=== PATIENT | male | born 1940 | race Caucasian/White ===

== ENCOUNTER 2022-06-30 23:41 | Inpatient (IN) | payer MEDICARE, OTHER ==
[2022-07-01] MEDS ORDERED: Naloxone HCl 0.4 mg/ml Vial ONE (00:59)
[2022-07-01 01:03] LABS: #Monocytes 0.9 10x3/uL (0.0-1.1); #Neutrophils 16.3 10x3/uL (1.5-8.4); %Basophils 0.1 % (0.0-2.0); %Lymphocytes 2.3 % (18.0-47.0); %Monocytes 4.9 % (0.0-10.0); %Neutrophils 92.4 % (40.0-75.0); Mean Corpuscular HGB CONC 35.5 g/dL (32.0-36.0); Mean Corpuscular Hemoglobin 29.6 pg (27.0-33.0); Mean Corpuscular Volume 83.3 fl (81.2-95.1); Mean Platelet Volume 9.2 fl (7.4-10.4); Platelet Count 193 10x3/uL (150-450); RBC Distribution Width 14.6 % (11.5-14.5); Red Blood Cell (RBC) Count 4.06 10x6/uL (4.32-5.72); White Blood Cell (WBC) Count 17.6 10x3/uL (3.5-10.5)
[2022-07-01 01:16] LABS: ALT (SGPT) 29 U/L (8-55); AST (SGOT) 31 U/L (5-34); Albumin 3.6 g/dL (3.4-4.8); Alkaline Phosphatase 103 U/L (40-110); Anion Gap 14 mmol/L (10-20); BUN (Urea Nitrogen) 16 mg/dL (8.4-25.7); Bilirubin, Total 1.2 mg/dL (0.2-1.2); Calc. Creatinine Clearance 0 mL/min (70-130); Carbon Dioxide 23 mmol/L (23-31); Chloride 100 mmol/L (98-107); Estimated GFR 75; Globulin 2.7 g/dL (2.4-3.5); Glucose 154 mg/dL (83-110); Potassium 3.3 mmol/L (3.5-5.1); Protein, Total 6.3 g/dL (5.8-8.1); Sodium 134 mmol/L (136-145)
[2022-07-01 01:43] LABS: SARS-CoV-2 NAA Rapid Test Not Detected (NotDetected)
[2022-07-01 01:48] LABS: CKMB 0.8 ng/mL (0-6.6)
[2022-07-01] MEDS ORDERED: Heparin 25,000 units/D5W 500 ML ONE (02:27)
[2022-07-01] MEDS ORDERED: Aspirin 325 MG TAB ONE (02:27)
[2022-07-01 02:30] LABS: Bilirubin Neg (Negative); Blood, Urine Negative (Negative); Clarity Clear (Clear); Glucose, Urine (Dipstick) Normal (Negative); Ketone, Urine Negative (Negative); Leukocyte Negative (Negative); Nitrite Negative (Negative); Protein, Urine (Dipstick) 15 mg/dl (Neg-Trace); Specific Gravity, Urine 1.005 (1.005-1.030); Urobilinogen Normal mg/dL (Less than 2)
[2022-07-01] MEDS ORDERED: Heparin 5,000 UNITS/ML VIAL ONE (02:39)
[2022-07-01 03:55] LABS: INR-International Normal Ratio 1.1; PTT 31.6 sec (22.0-33.0); Prothrombin Time 12.3 sec (9.5-12.1)
[2022-07-01] MEDS ORDERED: Communication Order-Pharmacy FS PRN (03:57)
[2022-07-01] MEDS ORDERED: Nitroglycerin 0.4 MG TAB (25 Tab Bottle) SL PRN (04:00)
[2022-07-01] MEDS ORDERED: Ondansetron PF 4 MG/2 ML Vial IVP PRN (04:07)
[2022-07-01 04:40] LABS: Magnesium 1.3 mg/dL (1.6-2.6)
[2022-07-01 04:46] LABS: Troponin I 0.872 ng/mL (< 0.028)
[2022-07-01] MEDS ORDERED: Heparin 10,000 UNITS/ 10 ML VIAL SLOW IVP SCH (05:00)
[2022-07-01] MEDS ORDERED: VANCOMYCIN 1.75 GM/350 ML BAG 1.75 GM in Premix Bag 1 BAG IVPB SCH (05:00)
[2022-07-01] MEDS ORDERED: Heparin 25,000 units/D5W 500 ML IVPB SCH (05:00)
[2022-07-01 05:30] LABS: Hemoglobin 10.2 g/dL (13.5-17.5); Platelet Count 179 10x3/uL (150-450)
[2022-07-01] MEDS ORDERED: Magnesium 2 GM/50 ML(in water) 2 GM in Premix Bag 1 BAG IVPB SCH (05:30)
[2022-07-01] MEDS: Sodium Chloride 0.9% 1,000 ML IV SCH ×2 (05:37→17:54)
[2022-07-01] MEDS ORDERED: Magnesium 2 GM/50 ML BAG (IN WATER) ONE (05:41)
[2022-07-01] MEDS ORDERED: Cefepime 2 GM in Sodium Chloride 0.9% 100 ML IVPB SCH (06:00)
[2022-07-01] MEDS: Potassium Chloride 20 MEQ in Premix Bag 1 BAG IVPB SCH ×2 (06:01→08:00)
[2022-07-01] MEDS ORDERED: Potassium Chloride 20 MEQ/100 ML PREMIX BAG ONE ×2 (06:22→08:16)
[2022-07-01 07:15] LABS: Hemoglobin 10.9 g/dL (13.5-17.5); MDiff Complete? YES; Mean Corpuscular HGB CONC 34.9 g/dL (32.0-36.0); Mean Corpuscular Hemoglobin 29.9 pg (27.0-33.0); Mean Corpuscular Volume 85.7 fl (81.2-95.1); Mean Platelet Volume 9.2 fl (7.4-10.4); Platelet Count 174 10x3/uL (150-450); RBC Distribution Width 14.9 % (11.5-14.5); Red Blood Cell (RBC) Count 3.64 10x6/uL (4.32-5.72); White Blood Cell (WBC) Count 20.1 10x3/uL (3.5-10.5)
[2022-07-01 07:28] LABS: Anion Gap 12 mmol/L (10-20); BUN (Urea Nitrogen) 17 mg/dL (8.4-25.7); Calc. Creatinine Clearance 0 mL/min (70-130); Calcium 7.6 mg/dL (7.8-10.44); Carbon Dioxide 24 mmol/L (23-31); Chloride 100 mmol/L (98-107); Estimated GFR 85; Glucose 149 mg/dL (83-110); Potassium 3.2 mmol/L (3.5-5.1); Sodium 133 mmol/L (136-145)
[2022-07-01 07:33] LABS: Troponin I 0.772 ng/mL (< 0.028)
[2022-07-01 08:00] LABS: Band 12 % (5-11); Lymphocytes 4 % (21-51); Monocytes 3 % (0-10); Neutrophil 81 % (42-75)
[2022-07-01] MEDS: Cefepime 2 GM in Sodium Chloride 0.9% 100 ML IVPB SCH ×2 (08:00→16:40)
[2022-07-01 08:03] LABS: Platelet Morphology Comment Appears Adequate
[2022-07-01 08:04] LABS: RBC Morphology Normal
[2022-07-01] MEDS ORDERED: Cefepime 2 GM VIAL ONE ×2 (08:14→15:45)
[2022-07-01] MEDS ORDERED: Pantoprazole 40 MG VIAL ONE (08:15)
[2022-07-01] MEDS ORDERED: Aspirin Chewable 81 MG TAB ONE (08:15)
[2022-07-01] MEDS: Aspirin Chewable 81 MG TAB PO SCH (08:48)
[2022-07-01] MEDS: Pantoprazole 40 MG VIAL IVP SCH (08:48)
[2022-07-01] MEDS ORDERED: Iopamidol 370 76% 100 ML VIAL ONE (10:03)
[2022-07-01] MEDS ORDERED: Acetaminophen 325 MG TAB ONE (11:00)
[2022-07-01] MEDS: Acetaminophen 325 MG TAB PO PRN (11:02)
[2022-07-01 22:17] VITALS: BMI 27.8
[2022-07-01 23:39] LABS: Bilirubin Neg (Negative); Blood, Urine 25 (Negative); CAUTI Indications for Culture Alt mental st,lethar; Clarity Slightly Cloudy (Clear); Glucose, Urine (Dipstick) Normal (Negative); Ketone, Urine 5 mg/dL (Negative); Leukocyte 25 (Negative); Nitrite Negative (Negative); Protein, Urine (Dipstick) 30 mg/dl (Neg-Trace); Specific Gravity, Urine 1.015 (1.005-1.030); Urobilinogen Normal mg/dL (Less than 2)
[2022-07-01 23:43] LABS: Urine Culture Reflex No No
[2022-07-01 23:55] LABS: Bacteria/HPF None Seen HPF (None Seen); RBC/HPF 0-3 HPF (0-3); Squamous Epithelial 0-3 HPF (0-3); WBC/HPF 0-3 HPF (0-3)
[2022-07-02] MEDS: Acetaminophen 325 MG TAB PO PRN (00:11)
[2022-07-02] MEDS: Cefepime 2 GM in Sodium Chloride 0.9% 100 ML IVPB SCH ×2 (00:13→09:44)
[2022-07-02] MEDS: Sodium Chloride 0.9% 1,000 ML IV SCH ×2 (01:32→09:34)
[2022-07-02] MEDS ORDERED: HYDROcodone/Acetaminophen 5/325 mg Tablet PO PRN ×2 (01:37→10:26)
[2022-07-02] MEDS: Vancomycin 1.5 GRAM/300 ML BAG 1.5 GM in Premix Bag 1 BAG IVPB SCH (05:29)
[2022-07-02 07:00] LABS: #Monocytes 1.3 10x3/uL (0.0-1.1); #Neutrophils 13.1 10x3/uL (1.5-8.4); %Basophils 0.2 % (0.0-2.0); %Eosinophils 0.1 % (0.0-6.0); %Lymphocytes 5.8 % (18.0-47.0); %Monocytes 8.7 % (0.0-10.0); %Neutrophils 84.7 % (40.0-75.0); Hemoglobin 10.4 g/dL (13.5-17.5); Mean Corpuscular HGB CONC 33.8 g/dL (32.0-36.0); Mean Corpuscular Hemoglobin 28.7 pg (27.0-33.0); Mean Corpuscular Volume 84.8 fl (81.2-95.1); Mean Platelet Volume 9.6 fl (7.4-10.4); Platelet Count 170 10x3/uL (150-450); RBC Distribution Width 15.2 % (11.5-14.5); Red Blood Cell (RBC) Count 3.63 10x6/uL (4.32-5.72); White Blood Cell (WBC) Count 15.4 10x3/uL (3.5-10.5)
[2022-07-02 07:23] LABS: Anion Gap 13 mmol/L (10-20); BUN (Urea Nitrogen) 20 mg/dL (8.4-25.7); Calc. Creatinine Clearance 89 mL/min (70-130); Calcium 7.4 mg/dL (7.8-10.44); Carbon Dioxide 21 mmol/L (23-31); Cardiac Risk 3.2 (Less than 4.5); Chloride 102 mmol/L (98-107); Cholesterol 97 mg/dl (< 200 Desired); Estimated GFR 88; Glucose 103 mg/dL (83-110); HDL Cholesterol 30 mg/dL (>60 Neg Risk); LDL Cholesterol, Calculated 42 mg/dL; Magnesium 1.9 mg/dL (1.6-2.6); Potassium 3.3 mmol/L (3.5-5.1); Sodium 133 mmol/L (136-145); Triglycerides 125 mg/dL (Less than 150)
[2022-07-02] MEDS: Aspirin Chewable 81 MG TAB PO SCH (09:36)
[2022-07-02] MEDS: Pantoprazole 40 MG VIAL IVP SCH (09:37)
[2022-07-02] MEDS ORDERED: Magnevist 469MG/ML 20 ML VIAL ONE ×2 (10:13)
[2022-07-02] MEDS ORDERED: Morphine 4 MG/ML VIAL SLOW IVP PRN (10:45)
[2022-07-02] MEDS ORDERED: ALPRAZolam 0.25 MG TAB PO PRN (10:49)
[2022-07-02] MEDS: HYDROcodone/Acetaminophen 5/325 mg Tablet PO PRN ×2 (14:53→20:58)
[2022-07-02] MEDS ORDERED: Pregabalin 50 MG CAP PO SCH (15:00)
[2022-07-02] MEDS ORDERED: Albuterol Sulfate 2.5 mg/3 ml Neb NEB SCH (17:00)
[2022-07-02] MEDS ORDERED: Furosemide 40 MG/4 ML VIAL SLOW IVP SCH (17:00)
[2022-07-02] MEDS: Pregabalin 50 MG CAP PO SCH (20:57)
[2022-07-02] MEDS: Tamsulosin HCl 0.4 MG CAP PO SCH (20:57)
[2022-07-02] MEDS: Ascorbic Acid 500 mg Chewable Tablet PO SCH (20:58)
[2022-07-02] MEDS: Simvastatin 10 MG TAB PO SCH (20:59)
[2022-07-02] MEDS: Albuterol Sulfate 2.5 mg/3 ml Neb NEB PRN (23:54)
[2022-07-03 05:45] LABS: Vancomycin, Trough 8.5 ug/mL
[2022-07-03 05:56] LABS: Anion Gap 14 mmol/L (10-20); BUN (Urea Nitrogen) 16 mg/dL (8.4-25.7); Calc. Creatinine Clearance 92 mL/min (70-130); Carbon Dioxide 23 mmol/L (23-31); Chloride 101 mmol/L (98-107); Estimated GFR 88; Glucose 103 mg/dL (83-110); Potassium 3.2 mmol/L (3.5-5.1); Sodium 135 mmol/L (136-145)
[2022-07-03 05:59] LABS: Calcium 6.9 mg/dL (7.8-10.44)
[2022-07-03] MEDS ORDERED: VANCOMYCIN 1.75 GM/350 ML BAG 1.75 GM in Premix Bag 1 BAG IVPB SCH (06:00)
[2022-07-03] MEDS: Vancomycin 1.5 GRAM/300 ML BAG 1.5 GM in Premix Bag 1 BAG IVPB SCH (06:00)
[2022-07-03] MEDS ORDERED: Calcium Gluc 4.6 MEQ/10 ML (100 MG/ML) SLOW IVP SCH (06:15)
[2022-07-03 06:47] LABS: Mean Corpuscular HGB CONC 33.9 g/dL (32.0-36.0); Mean Corpuscular Hemoglobin 28.9 pg (27.0-33.0); Mean Corpuscular Volume 85.3 fl (81.2-95.1); Mean Platelet Volume 10.1 fl (7.4-10.4); Platelet Count 175 10x3/uL (150-450); RBC Distribution Width 14.8 % (11.5-14.5); Red Blood Cell (RBC) Count 3.46 10x6/uL (4.32-5.72); White Blood Cell (WBC) Count 9.7 10x3/uL (3.5-10.5)
[2022-07-03 07:24] LABS: MDiff Complete? YES
[2022-07-03 07:37] LABS: Lymphocytes 9 % (21-51)
[2022-07-03 07:38] LABS: Monocytes 3 % (0-10); Neutrophil 88 % (42-75); Platelet Morphology Comment Appears Adequate
[2022-07-03 07:39] LABS: RBC Morphology Normal
[2022-07-03] MEDS ORDERED: Aspirin 81 mg Enteric Coated Tablet PO SCH (09:00)
[2022-07-03] MEDS: Carvedilol 3.125 MG TAB PO SCH ×3 (10:01→18:24)
[2022-07-03] MEDS: Amlodipine 10 MG TAB PO SCH ×3 (10:02→21:32)
[2022-07-03] MEDS: Pregabalin 50 MG CAP PO SCH ×2 (10:07→21:30)
[2022-07-03] MEDS: Valsartan 80 MG TAB PO SCH (10:08)
[2022-07-03] MEDS: Ascorbic Acid 500 mg Chewable Tablet PO SCH ×2 (10:09→21:29)
[2022-07-03] MEDS: Meloxicam 7.5 MG TAB PO SCH (10:10)
[2022-07-03] MEDS: Hydrochlorothiazide 25 MG TAB PO SCH (10:10)
[2022-07-03] MEDS: Fluticasone Propionate Nasal Spray 16 gm Bottle NASAL SCH (10:11)
[2022-07-03] MEDS ORDERED: Benzonatate 100 MG CAP PO PRN (11:59)
[2022-07-03] MEDS ORDERED: Furosemide 40 MG/4 ML VIAL SLOW IVP SCH (14:00)
[2022-07-03] MEDS: HYDROcodone/Acetaminophen 5/325 mg Tablet PO PRN (18:46)
[2022-07-03] MEDS: Albuterol Sulfate 2.5 mg/3 ml Neb NEB PRN (20:44)
[2022-07-03] MEDS ORDERED: Potassium Chloride 20 MEQ TAB PO SCH (21:00)
[2022-07-03] MEDS: Tamsulosin HCl 0.4 MG CAP PO SCH (21:29)
[2022-07-03] MEDS: Simvastatin 10 MG TAB PO SCH (21:32)
[2022-07-03] MEDS: Aspirin 81 mg Enteric Coated Tablet PO SCH (21:32)
[2022-07-04] MEDS: Vancomycin HCl 1 GM in Sodium Chloride 0.9% 250 ML 250 ML IVPB SCH ×2 (05:10→17:20)
[2022-07-04 05:35] LABS: Anion Gap 12 mmol/L (10-20); BUN (Urea Nitrogen) 19 mg/dL (8.4-25.7); Calc. Creatinine Clearance 97 mL/min (70-130); Calcium 7.5 mg/dL (7.8-10.44); Carbon Dioxide 25 mmol/L (23-31); Chloride 100 mmol/L (98-107); Estimated GFR 90; Glucose 107 mg/dL (83-110); Potassium 3.3 mmol/L (3.5-5.1); Sodium 134 mmol/L (136-145)
[2022-07-04 06:16] LABS: #Eosinphils 0.2 10x3/uL (0.0-0.5); #Monocytes 0.8 10x3/uL (0.0-1.1); #Neutrophils 4.8 10x3/uL (1.5-8.4); %Basophils 0.3 % (0.0-2.0); %Eosinophils 2.9 % (0.0-6.0); %Lymphocytes 16.3 % (18.0-47.0); %Monocytes 11.6 % (0.0-10.0); %Neutrophils 68.2 % (40.0-75.0); Mean Corpuscular HGB CONC 35.5 g/dL (32.0-36.0); Mean Corpuscular Hemoglobin 29.5 pg (27.0-33.0); Mean Corpuscular Volume 83.2 fl (81.2-95.1); Mean Platelet Volume 9.9 fl (7.4-10.4); Platelet Count 197 10x3/uL (150-450); RBC Distribution Width 14.6 % (11.5-14.5); Red Blood Cell (RBC) Count 3.39 10x6/uL (4.32-5.72)
[2022-07-04] MEDS ORDERED: Potassium Chloride 20 MEQ TAB PO SCH (08:00)
[2022-07-04] MEDS: Valsartan 80 MG TAB PO SCH (09:46)
[2022-07-04] MEDS: Pregabalin 50 MG CAP PO SCH ×2 (09:46→21:29)
[2022-07-04] MEDS: Meloxicam 7.5 MG TAB PO SCH (09:46)
[2022-07-04] MEDS: Carvedilol 3.125 MG TAB PO SCH ×2 (09:46→17:20)
[2022-07-04] MEDS: Hydrochlorothiazide 25 MG TAB PO SCH (09:46)
[2022-07-04] MEDS: Fluticasone Propionate Nasal Spray 16 gm Bottle NASAL SCH (09:46)
[2022-07-04] MEDS: Ascorbic Acid 500 mg Chewable Tablet PO SCH ×2 (09:46→21:28)
[2022-07-04] MEDS: Docusate 100 MG CAP PO PRN ×2 (10:32→21:30)
[2022-07-04] MEDS: HYDROcodone/Acetaminophen 5/325 mg Tablet PO PRN ×2 (10:33→21:29)
[2022-07-04] MEDS ORDERED: Sodium Bicarbonate 2.5 MEQ/5 ML VIAL ONE (12:40)
[2022-07-04] MEDS ORDERED: Lidocaine 1% PF 5 ML VIAL ONE (12:40)
[2022-07-04] MEDS ORDERED: cefTRIAXone\\ROCEPHIN 2 GM in Sodium Chloride 0.9% 100 ML IVPB SCH (18:30)
[2022-07-04] MEDS ORDERED: Dronedarone HCl 400 MG TAB PO SCH (19:00)
[2022-07-04] MEDS: Albuterol Sulfate 2.5 mg/3 ml Neb NEB PRN (19:27)
[2022-07-04] MEDS: Amlodipine 10 MG TAB PO SCH (21:27)
[2022-07-04] MEDS: Apixaban 5 MG TAB PO SCH (21:27)
[2022-07-04] MEDS: Calcium Carbonate 600 MG + Vit D TAB PO SCH (21:28)
[2022-07-04] MEDS: cefTRIAXone\\ROCEPHIN 2 GM in Sodium Chloride 0.9% 100 ML IVPB SCH (21:28)
[2022-07-04] MEDS: Aspirin 81 mg Enteric Coated Tablet PO SCH (21:28)
[2022-07-04] MEDS: Tamsulosin HCl 0.4 MG CAP PO SCH (21:29)
[2022-07-04] MEDS: Simvastatin 10 MG TAB PO SCH (21:29)
[2022-07-05 04:48] LABS: Hemoglobin 10.8 g/dL (13.5-17.5); Platelet Count 207 10x3/uL (150-450)
[2022-07-05 04:55] LABS: Anion Gap 14 mmol/L (10-20); BUN (Urea Nitrogen) 15 mg/dL (8.4-25.7); Calc. Creatinine Clearance 99 mL/min (70-130); Carbon Dioxide 25 mmol/L (23-31); Chloride 99 mmol/L (98-107); Estimated GFR 90; Glucose 106 mg/dL (83-110); Potassium 3.6 mmol/L (3.5-5.1); Sodium 134 mmol/L (136-145)
[2022-07-05] MEDS ORDERED: Dronedarone HCl 400 MG TAB PO SCH (08:00)
[2022-07-05] MEDS: Dronedarone HCl 400 MG TAB PO SCH ×2 (08:23→17:34)
[2022-07-05] MEDS: Docusate 100 MG CAP PO PRN (08:23)
[2022-07-05] MEDS: Carvedilol 3.125 MG TAB PO SCH ×2 (08:23→17:34)
[2022-07-05] MEDS: Ascorbic Acid 500 mg Chewable Tablet PO SCH ×2 (08:23→21:30)
[2022-07-05] MEDS: Apixaban 5 MG TAB PO SCH ×2 (08:23→21:32)
[2022-07-05] MEDS: Hydrochlorothiazide 25 MG TAB PO SCH (08:23)
[2022-07-05] MEDS: Pregabalin 50 MG CAP PO SCH ×2 (08:23→21:29)
[2022-07-05] MEDS: Valsartan 80 MG TAB PO SCH (08:23)
[2022-07-05] MEDS: HYDROcodone/Acetaminophen 5/325 mg Tablet PO PRN ×3 (08:24→21:31)
[2022-07-05] MEDS: Fluticasone Propionate Nasal Spray 16 gm Bottle NASAL SCH (08:24)
[2022-07-05] MEDS ORDERED: Polyethylene Glycol 3350 17 GM Packet PO PRN (10:10)
[2022-07-05] MEDS ORDERED: Polyethylene Glycol 3350 17 GM Packet PO SCH (10:15)
[2022-07-05] MEDS: Simvastatin 10 MG TAB PO SCH (21:20)
[2022-07-05] MEDS: Tamsulosin HCl 0.4 MG CAP PO SCH (21:20)
[2022-07-05] MEDS: Amlodipine 10 MG TAB PO SCH (21:31)
[2022-07-05] MEDS: Aspirin 81 mg Enteric Coated Tablet PO SCH (21:32)
[2022-07-05] MEDS: Calcium Carbonate 600 MG + Vit D TAB PO SCH (21:32)
[2022-07-05] MEDS: cefTRIAXone\\ROCEPHIN 2 GM in Sodium Chloride 0.9% 100 ML IVPB SCH (21:33)
[2022-07-06] MEDS ORDERED: Milk Of Magnesia 30 ML UDCUP PO PRN (08:50)
[2022-07-06] MEDS: Valsartan 80 MG TAB PO SCH (08:57)
[2022-07-06] MEDS: HYDROcodone/Acetaminophen 5/325 mg Tablet PO PRN ×3 (08:57→21:22)
[2022-07-06] MEDS: Dronedarone HCl 400 MG TAB PO SCH ×2 (08:58→17:11)
[2022-07-06] MEDS: Hydrochlorothiazide 25 MG TAB PO SCH (08:58)
[2022-07-06] MEDS: Carvedilol 3.125 MG TAB PO SCH ×2 (08:58→17:11)
[2022-07-06] MEDS: Apixaban 5 MG TAB PO SCH ×2 (08:58→20:23)
[2022-07-06] MEDS: Ascorbic Acid 500 mg Chewable Tablet PO SCH ×2 (08:58→20:21)
[2022-07-06] MEDS: Fluticasone Propionate Nasal Spray 16 gm Bottle NASAL SCH (08:58)
[2022-07-06] MEDS: Pregabalin 50 MG CAP PO SCH ×2 (08:58→20:22)
[2022-07-06] MEDS ORDERED: Bisacodyl 10 MG SUPP PR SCH (09:00)
[2022-07-06] MEDS: Docusate 100 MG CAP PO PRN (09:01)
[2022-07-06] MEDS: Calcium Carbonate 600 MG + Vit D TAB PO SCH (20:21)
[2022-07-06] MEDS: Amlodipine 10 MG TAB PO SCH (20:22)
[2022-07-06] MEDS: Aspirin 81 mg Enteric Coated Tablet PO SCH (20:23)
[2022-07-06] MEDS: cefTRIAXone\\ROCEPHIN 2 GM in Sodium Chloride 0.9% 100 ML IVPB SCH (20:25)
[2022-07-06] MEDS: Simvastatin 10 MG TAB PO SCH (20:38)
[2022-07-06] MEDS: Tamsulosin HCl 0.4 MG CAP PO SCH (20:38)
[2022-07-07 05:27] LABS: #Monocytes 1.4 10x3/uL (0.0-1.1); #Neutrophils 13.6 10x3/uL (1.5-8.4); %Basophils 0.1 % (0.0-2.0); %Eosinophils 0.2 % (0.0-6.0); %Lymphocytes 5.9 % (18.0-47.0); %Monocytes 8.7 % (0.0-10.0); Hemoglobin 11.5 g/dL (13.5-17.5); Mean Corpuscular HGB CONC 34.6 g/dL (32.0-36.0); Mean Corpuscular Hemoglobin 28.8 pg (27.0-33.0); Mean Corpuscular Volume 83.2 fl (81.2-95.1); Mean Platelet Volume 9.7 fl (7.4-10.4); Platelet Count 300 10x3/uL (150-450); RBC Distribution Width 14.6 % (11.5-14.5); Red Blood Cell (RBC) Count 3.99 10x6/uL (4.32-5.72); White Blood Cell (WBC) Count 16.2 10x3/uL (3.5-10.5)
[2022-07-07 05:28] LABS: Anion Gap 12 mmol/L (10-20); BUN (Urea Nitrogen) 25 mg/dL (8.4-25.7); CRP (Inflammatory) 8.26 mg/dL (= or < 0.5); Calc. Creatinine Clearance 78 mL/min (70-130); Calcium 8.8 mg/dL (7.8-10.44); Carbon Dioxide 25 mmol/L (23-31); Chloride 97 mmol/L (98-107); Estimated GFR 84; Glucose 133 mg/dL (83-110); Sodium 130 mmol/L (136-145)
[2022-07-07] MEDS: Apixaban 5 MG TAB PO SCH ×2 (08:57→20:36)
[2022-07-07] MEDS: Dronedarone HCl 400 MG TAB PO SCH ×2 (08:58→17:09)
[2022-07-07] MEDS: Valsartan 80 MG TAB PO SCH (08:59)
[2022-07-07] MEDS: Carvedilol 3.125 MG TAB PO SCH ×2 (08:59→17:10)
[2022-07-07] MEDS: Hydrochlorothiazide 25 MG TAB PO SCH (08:59)
[2022-07-07] MEDS: Pregabalin 50 MG CAP PO SCH ×2 (08:59→20:34)
[2022-07-07] MEDS: Ascorbic Acid 500 mg Chewable Tablet PO SCH ×2 (08:59→20:35)
[2022-07-07] MEDS: Fluticasone Propionate Nasal Spray 16 gm Bottle NASAL SCH (09:00)
[2022-07-07] MEDS: HYDROcodone/Acetaminophen 5/325 mg Tablet PO PRN ×2 (09:09→22:12)
[2022-07-07] MEDS: cefTRIAXone\\ROCEPHIN 2 GM in Sodium Chloride 0.9% 100 ML IVPB SCH (20:32)
[2022-07-07] MEDS: Tamsulosin HCl 0.4 MG CAP PO SCH (20:34)
[2022-07-07] MEDS: Amlodipine 10 MG TAB PO SCH (20:35)
[2022-07-07] MEDS: Calcium Carbonate 600 MG + Vit D TAB PO SCH (20:35)
[2022-07-07] MEDS: Aspirin 81 mg Enteric Coated Tablet PO SCH (20:36)
[2022-07-07] MEDS: Simvastatin 10 MG TAB PO SCH (20:37)
[2022-07-08 05:18] LABS: #Eosinphils 0.5 10x3/uL (0.0-0.5); #Monocytes 0.9 10x3/uL (0.0-1.1); #Neutrophils 3.9 10x3/uL (1.5-8.4); %Basophils 0.4 % (0.0-2.0); %Eosinophils 7.5 % (0.0-6.0); %Lymphocytes 21.3 % (18.0-47.0); %Monocytes 12.6 % (0.0-10.0); %Neutrophils 57.5 % (40.0-75.0); Hemoglobin 10.4 g/dL (13.5-17.5); Mean Corpuscular HGB CONC 34.4 g/dL (32.0-36.0); Mean Corpuscular Volume 84.1 fl (81.2-95.1); Mean Platelet Volume 9.5 fl (7.4-10.4); Platelet Count 290 10x3/uL (150-450); RBC Distribution Width 14.6 % (11.5-14.5); Red Blood Cell (RBC) Count 3.59 10x6/uL (4.32-5.72); White Blood Cell (WBC) Count 6.8 10x3/uL (3.5-10.5)
[2022-07-08 05:39] LABS: Anion Gap 12 mmol/L (10-20); BUN (Urea Nitrogen) 26 mg/dL (8.4-25.7); CRP (Inflammatory) 11.83 mg/dL (= or < 0.5); Calc. Creatinine Clearance 87 mL/min (70-130); Calcium 8.6 mg/dL (7.8-10.44); Carbon Dioxide 25 mmol/L (23-31); Chloride 95 mmol/L (98-107); Estimated GFR 87; Glucose 99 mg/dL (83-110); Potassium 3.8 mmol/L (3.5-5.1); Sodium 128 mmol/L (136-145)
[2022-07-08] MEDS: Carvedilol 3.125 MG TAB PO SCH (09:29)
[2022-07-08] MEDS: Apixaban 5 MG TAB PO SCH (09:30)
[2022-07-08] MEDS: Dronedarone HCl 400 MG TAB PO SCH (09:30)
[2022-07-08] MEDS: Hydrochlorothiazide 25 MG TAB PO SCH (09:30)
[2022-07-08] MEDS: Ascorbic Acid 500 mg Chewable Tablet PO SCH (09:30)
[2022-07-08] MEDS: Pregabalin 50 MG CAP PO SCH (09:31)
[2022-07-08] MEDS: Valsartan 80 MG TAB PO SCH (09:31)
[2022-07-08] MEDS: Fluticasone Propionate Nasal Spray 16 gm Bottle NASAL SCH (09:32)
[2022-07-08 16:44] VITALS: BP 127/60; TEMP 97.5
== END 2022-07-08 16:45 | DRG 871 ==
LOC: CSHERS 23:41 → CSHERHOLD 07-01 03:58 → UNDOADMIN 07-01 03:58 → CSHERHOLD 07-01 12:55 → CSHTELE 07-01 21:40
PROVIDERS: ADMIT Family Medicine; ATTEND Family Medicine
PROC: 3E03329 Introduction of Other Anti-infective into Peripheral Vein, Percutaneous Approach (ICD-10-PCS; principal; 2022-07-01)
PROC: 02HV33Z Insertion of Infusion Device into Superior Vena Cava, Percutaneous Approach (ICD-10-PCS; 2022-07-04)
PROC: B5181ZA Fluoroscopy of Superior Vena Cava using Low Osmolar Contrast, Guidance (ICD-10-PCS; 2022-07-04)
PROC: B548ZZA Ultrasonography of Superior Vena Cava, Guidance (ICD-10-PCS; 2022-07-04)
DX: A40.1 Sepsis due to streptococcus, group B (principal); G93.41 Metabolic encephalopathy; I21.A1 Myocardial infarction type 2; J96.01 Acute respiratory failure with hypoxia; M46.26 Osteomyelitis of vertebra, lumbar region; C79.51 Secondary malignant neoplasm of bone; I48.92 Unspecified atrial flutter; Z20.822 Contact with and (suspected) exposure to COVID-19; M46.46 Discitis, unspecified, lumbar region; C61 Malignant neoplasm of prostate; I44.0 Atrioventricular block, first degree; E87.6 Hypokalemia; I95.9 Hypotension, unspecified; I48.91 Unspecified atrial fibrillation; I10 Essential (primary) hypertension; G89.29 Other chronic pain; K21.9 Gastro-esophageal reflux disease without esophagitis; Z79.899 Other long term (current) drug therapy; Z79.82 Long term (current) use of aspirin; Z88.8 Allergy status to other drugs, medicaments and biological substances; Z88.0 Allergy status to penicillin; Z90.49 Acquired absence of other specified parts of digestive tract; Z98.41 Cataract extraction status, right eye; Z98.42 Cataract extraction status, left eye; Z87.891 Personal history of nicotine dependence; Z82.3 Family history of stroke; Z83.3 Family history of diabetes mellitus
CPT/HCPCS: 36415; 36416; 36569; 70450; 71045; 71275; 72157; 72158; 76705; 80048; 80053; 80061; 80202; 81003; 82553; 83605; 83735; 84145; 84484; 85014; 85018; 85025; 85049; 85610; 85652; 85730; 86140; 87040; 87077; 87149; 87186; 87811; 93005; 93010; 93306; 94640; 94760; 96374; 96375; A9579; C1751; C9113; J0610; J0692; J0696; J1644; J1940; J1956; J2310; J3370; J3475; J3480; J3490; J7050; J7611; L0639; Q9967

== ENCOUNTER 2023-06-19 05:26 | Inpatient (IN) | payer MEDICARE, OTHER ==
[2023-06-19 05:51] LABS: Actual Bicarbonate (HCO3a) 22.9 mEq/L (22-28); Analyzer IN Cardio CS ER; Base Excess (BEa) -1.6 mEq/L (-2.0 to +3.0); CO2 Tension 38.2 mmHg (35.0-45.0); Carboxyhemoglobin (COHb) 0.1 gm% (0.0-3.0); Hematocrit-ABG 41 % (42.0-52.0); Hemoglobin (Hb) 13.9 g/dL (14.0-18.0); O2 Tension (PaO2), arterial 198.4 mmHg (> 60.0); Potassium - ABG Lab 4.23 mmol/L (3.70-5.30); Puncture Site LBA; pH, Arterial 7.396 (7.35-7.45)
[2023-06-19 06:03] LABS: #Eosinphils 0.1 10x3/uL (0.0-0.5); #Monocytes 0.1 10x3/uL (0.0-1.1); #Neutrophils 5.5 10x3/uL (1.5-8.4); %Basophils 0.3 % (0.0-2.0); %Eosinophils 1.1 % (0.0-6.0); %Lymphocytes 11.5 % (18.0-47.0); %Monocytes 2.1 % (0.0-10.0); %Neutrophils 84.7 % (40.0-75.0); Hematocrit 42.8 % (38.8-50.0); Hemoglobin 14.3 g/dL (13.5-17.5); Mean Corpuscular HGB CONC 33.4 g/dL (32.0-36.0); Mean Corpuscular Hemoglobin 31.2 pg (27.0-33.0); Mean Corpuscular Volume 93.2 fl (81.2-95.1); Mean Platelet Volume 9.9 fl (7.4-10.4); Platelet Count 250 10x3/uL (150-450); RBC Distribution Width 14.2 % (11.5-14.5); Red Blood Cell (RBC) Count 4.59 10x6/uL (4.32-5.72); White Blood Cell (WBC) Count 6.5 10x3/uL (3.5-10.5)
[2023-06-19 06:11] LABS: PTT 26.8 sec (22.0-33.0); Prothrombin Time 11.1 sec (9.5-12.1)
[2023-06-19] MEDS ORDERED: Vancomycin 1 GM VIAL ONE (06:16)
[2023-06-19] MEDS ORDERED: Acetaminophen 500 MG TAB ONE (06:16)
[2023-06-19] MEDS ORDERED: Piperacillin/Tazobactam 4.5 GM VIAL ONE (06:16)
[2023-06-19 06:18] LABS: CRP (Inflammatory) 0.87 mg/dL (= or < 0.5); Lipase 24 U/L (8-78); Magnesium 1.5 mg/dL (1.6-2.6)
[2023-06-19 06:20] LABS: Troponin I 0.015 ng/mL (< 0.028)
[2023-06-19 06:39] LABS: D-Dimer Test 0.43 mg/L FEU (0.19-0.50)
[2023-06-19 06:47] LABS: Bilirubin Neg (Negative); Blood, Urine Negative (Negative); Clarity Clear (Clear); Glucose, Urine (Dipstick) Normal (Negative); Ketone, Urine Negative (Negative); Leukocyte Negative (Negative); Nitrite Negative (Negative); Protein, Urine (Dipstick) Negative (Neg-Trace); Specific Gravity, Urine 1.015 (1.005-1.030); Urobilinogen Normal mg/dL (Less than 2)
[2023-06-19 06:48] LABS: ALT (SGPT) 11 U/L (8-55); AST (SGOT) 20 U/L (5-34); Alkaline Phosphatase 94 U/L (40-110); Anion Gap 21 mmol/L (10-20); BUN (Urea Nitrogen) 18 mg/dL (8.4-25.7); Bilirubin, Total 0.6 mg/dL (0.2-1.2); Calc. Creatinine Clearance 0 mL/min (70-130); Calcium 8.8 mg/dL (7.8-10.44); Carbon Dioxide 18 mmol/L (23-31); Chloride 102 mmol/L (98-107); Estimated GFR 58; Globulin 3.3 g/dL (2.4-3.5); Glucose 117 mg/dL (83-110); Potassium 4.5 mmol/L (3.5-5.1); Protein, Total 7.3 g/dL (5.8-8.1); Sodium 136 mmol/L (136-145)
[2023-06-19] MEDS ORDERED: Magnesium 2 GM/50 ML BAG (IN WATER) ONE (06:51)
[2023-06-19 06:59] LABS: Bacteria/HPF None Seen HPF (None Seen); CAUTI Indications for Culture Alt mental st,lethar; RBC/HPF None Seen HPF (0-3); Squamous Epithelial None Seen HPF (0-3); WBC/HPF None Seen HPF (0-3)
[2023-06-19 07:00] LABS: Urine Culture Reflex No No
[2023-06-19 07:31] LABS: SARS-CoV-2 NAA Rapid Test Not Detected (NotDetected)
[2023-06-19] MEDS ORDERED: Ondansetron PF 4 MG/2 ML Vial IVP PRN (08:39)
[2023-06-19] MEDS ORDERED: Acetaminophen 325 MG TAB PO PRN (08:39)
[2023-06-19] MEDS ORDERED: VANCOMYCIN IVPB PRN (08:45)
[2023-06-19] MEDS ORDERED: Apixaban 5 MG TAB PO SCH (09:30)
[2023-06-19] MEDS ORDERED: Pregabalin 50 MG CAP PO SCH (09:30)
[2023-06-19 09:41] LABS: Lactic Acid 2.4 mmol/L (0.5-2.2)
[2023-06-19 09:50] LABS: Troponin I 0.016 ng/mL (< 0.028)
[2023-06-19 11:14] VITALS: BMI 30.7
[2023-06-19] MEDS ORDERED: Vancomycin HCl 500 MG in Sodium Chloride 0.9% 100 ML IVPB SCH (11:30)
[2023-06-19 12:38] LABS: Troponin I 0.017 ng/mL (< 0.028)
[2023-06-19] MEDS: Piperacillin/Tazobactam 3.375 GM in Sodium Chloride 0.9% 100 ML IVPB SCH ×2 (14:03→21:31)
[2023-06-19] MEDS: Dronedarone HCl 400 MG TAB PO SCH (18:16)
[2023-06-19] MEDS: Carvedilol 12.5 MG TAB PO SCH (18:16)
[2023-06-19] MEDS ORDERED: Sodium Chloride 0.9% 500 ML IV SCH (18:45)
[2023-06-19] MEDS ORDERED: Magnesium 2 GM/50 ML(in water) 2 GM in Premix 1 BAG IVPB SCH (20:00)
[2023-06-19] MEDS: Pregabalin 50 MG CAP PO SCH (20:09)
[2023-06-19] MEDS: Apixaban 5 MG TAB PO SCH (20:09)
[2023-06-19] MEDS: Tamsulosin HCl 0.4 MG CAP PO SCH (20:09)
[2023-06-19] MEDS: Amlodipine 10 MG TAB PO SCH (20:10)
[2023-06-19] MEDS: Simvastatin 10 MG TAB PO SCH (20:10)
[2023-06-19 20:41] LABS: Lactic Acid 1.8 mmol/L (0.5-2.2)
[2023-06-20] MEDS: Piperacillin/Tazobactam 3.375 GM in Sodium Chloride 0.9% 100 ML IVPB SCH ×3 (03:36→21:02)
[2023-06-20 04:31] LABS: Anion Gap 14 mmol/L (10-20); BUN (Urea Nitrogen) 16 mg/dL (8.4-25.7); Calc. Creatinine Clearance 87 mL/min (70-130); Carbon Dioxide 22 mmol/L (23-31); Chloride 104 mmol/L (98-107); Potassium 4.2 mmol/L (3.5-5.1); Sodium 136 mmol/L (136-145)
[2023-06-20 04:32] LABS: Calcium 7.7 mg/dL (7.8-10.44); Estimated GFR 85; Glucose 125 mg/dL (83-110)
[2023-06-20 04:53] LABS: #Eosinphils 0.1 10x3/uL (0.0-0.5); #Monocytes 0.6 10x3/uL (0.0-1.1); %Basophils 0.2 % (0.0-2.0); %Eosinophils 0.4 % (0.0-6.0); %Lymphocytes 7.5 % (18.0-47.0); %Monocytes 3.8 % (0.0-10.0); %Neutrophils 87.5 % (40.0-75.0); Hematocrit 30.7 % (38.8-50.0); Hemoglobin 10.4 g/dL (13.5-17.5); Mean Corpuscular HGB CONC 33.9 g/dL (32.0-36.0); Mean Corpuscular Hemoglobin 31.7 pg (27.0-33.0); Mean Corpuscular Volume 93.6 fl (81.2-95.1); Platelet Count 193 10x3/uL (150-450); RBC Distribution Width 14.6 % (11.5-14.5); Red Blood Cell (RBC) Count 3.28 10x6/uL (4.32-5.72)
[2023-06-20] MEDS: Vancomycin 1.5 GRAM/300 ML BAG 1.5 GM in Premix 1 BAG IVPB SCH (06:26)
[2023-06-20] MEDS: Pregabalin 50 MG CAP PO SCH ×2 (07:43→21:02)
[2023-06-20] MEDS: Carvedilol 12.5 MG TAB PO SCH ×2 (07:44→16:53)
[2023-06-20] MEDS: Dronedarone HCl 400 MG TAB PO SCH ×2 (07:44→16:53)
[2023-06-20] MEDS: Apixaban 5 MG TAB PO SCH (07:45)
[2023-06-20] MEDS ORDERED: Vancomycin 1.5 GRAM/300 ML BAG 1.5 GM in Premix 1 BAG IVPB SCH (08:00)
[2023-06-20] MEDS ORDERED: FLU VACC QS2023(65UP)/MF59C/PF 60 MCG/0.5 ML SYRINGE IM ONE (09:00)
[2023-06-20] MEDS: Simvastatin 10 MG TAB PO SCH (21:02)
[2023-06-20] MEDS: Amlodipine 10 MG TAB PO SCH (21:04)
[2023-06-20] MEDS: Tamsulosin HCl 0.4 MG CAP PO SCH (21:04)
[2023-06-21] MEDS: Vancomycin 1.5 GRAM/300 ML BAG 1.5 GM in Premix 1 BAG IVPB SCH ×2 (01:30→17:35)
[2023-06-21] MEDS: Piperacillin/Tazobactam 3.375 GM in Sodium Chloride 0.9% 100 ML IVPB SCH ×3 (05:16→20:44)
[2023-06-21] MEDS: Pregabalin 50 MG CAP PO SCH ×2 (08:35→20:44)
[2023-06-21] MEDS: Dronedarone HCl 400 MG TAB PO SCH ×2 (08:35→16:40)
[2023-06-21] MEDS: Carvedilol 12.5 MG TAB PO SCH ×2 (08:35→16:40)
[2023-06-21 11:09] LABS: #Eosinphils 0.1 10x3/uL (0.0-0.5); #Monocytes 0.5 10x3/uL (0.0-1.1); #Neutrophils 8.7 10x3/uL (1.5-8.4); %Basophils 0.2 % (0.0-2.0); %Eosinophils 1.2 % (0.0-6.0); %Lymphocytes 9.6 % (18.0-47.0); %Monocytes 5.2 % (0.0-10.0); %Neutrophils 83.3 % (40.0-75.0); Hematocrit 29.4 % (38.8-50.0); Hemoglobin 9.9 g/dL (13.5-17.5); Mean Corpuscular HGB CONC 33.7 g/dL (32.0-36.0); Mean Corpuscular Hemoglobin 31.4 pg (27.0-33.0); Mean Corpuscular Volume 93.3 fl (81.2-95.1); Mean Platelet Volume 9.7 fl (7.4-10.4); Platelet Count 197 10x3/uL (150-450); RBC Distribution Width 14.4 % (11.5-14.5); Red Blood Cell (RBC) Count 3.15 10x6/uL (4.32-5.72); White Blood Cell (WBC) Count 10.4 10x3/uL (3.5-10.5)
[2023-06-21 11:15] LABS: Anion Gap 13 mmol/L (10-20); BUN (Urea Nitrogen) 10 mg/dL (8.4-25.7); Calc. Creatinine Clearance 96 mL/min (70-130); Calcium 7.9 mg/dL (7.8-10.44); Carbon Dioxide 22 mmol/L (23-31); Chloride 105 mmol/L (98-107); Estimated GFR 88; Glucose 107 mg/dL (83-110); Potassium 3.7 mmol/L (3.5-5.1); Sodium 136 mmol/L (136-145)
[2023-06-21] MEDS ORDERED: Loperamide HCl 2 MG CAP PO PRN (13:37)
[2023-06-21] MEDS ORDERED: Saccharomyces boulardii 250 MG CAP PO SCH (13:45)
[2023-06-21] MEDS ORDERED: Valsartan 80 MG TAB PO SCH (14:00)
[2023-06-21 17:50] LABS: Vancomycin, Trough 11.9 ug/mL
[2023-06-21] MEDS: Tamsulosin HCl 0.4 MG CAP PO SCH (20:44)
[2023-06-21] MEDS: Amlodipine 10 MG TAB PO SCH (20:44)
[2023-06-21] MEDS: Simvastatin 10 MG TAB PO SCH (20:45)
[2023-06-22 03:46] LABS: #Eosinphils 0.2 10x3/uL (0.0-0.5); #Monocytes 0.6 10x3/uL (0.0-1.1); #Neutrophils 6.8 10x3/uL (1.5-8.4); %Basophils 0.3 % (0.0-2.0); %Eosinophils 1.9 % (0.0-6.0); %Lymphocytes 11.6 % (18.0-47.0); %Monocytes 6.5 % (0.0-10.0); %Neutrophils 79.4 % (40.0-75.0); Hematocrit 31.5 % (38.8-50.0); Hemoglobin 10.4 g/dL (13.5-17.5); Mean Corpuscular Hemoglobin 32.6 pg (27.0-33.0); Mean Corpuscular Volume 98.7 fl (81.2-95.1); Platelet Count 200 10x3/uL (150-450); RBC Distribution Width 14.4 % (11.5-14.5); Red Blood Cell (RBC) Count 3.19 10x6/uL (4.32-5.72); White Blood Cell (WBC) Count 8.6 10x3/uL (3.5-10.5)
[2023-06-22 04:01] LABS: Anion Gap 13 mmol/L (10-20); BUN (Urea Nitrogen) 9 mg/dL (8.4-25.7); Calc. Creatinine Clearance 102 mL/min (70-130); Calcium 7.7 mg/dL (7.8-10.44); Carbon Dioxide 17 mmol/L (23-31); Chloride 107 mmol/L (98-107); Estimated GFR 89; Glucose 102 mg/dL (83-110); Potassium 3.8 mmol/L (3.5-5.1); Sodium 133 mmol/L (136-145)
[2023-06-22] MEDS: Piperacillin/Tazobactam 3.375 GM in Sodium Chloride 0.9% 100 ML IVPB SCH (04:52)
[2023-06-22] MEDS ORDERED: Valsartan 80 MG TAB PO SCH (09:00)
[2023-06-22] MEDS ORDERED: Saccharomyces boulardii 250 MG CAP PO SCH (09:00)
[2023-06-22 09:08] VITALS: TEMP 98
[2023-06-22] MEDS: Dronedarone HCl 400 MG TAB PO SCH (09:19)
[2023-06-22] MEDS: Pregabalin 50 MG CAP PO SCH (09:20)
[2023-06-22] MEDS: Carvedilol 12.5 MG TAB PO SCH (09:20)
[2023-06-22 13:46] VITALS: BP 154/62
== END 2023-06-22 11:15 | disposition home or self-care (01) | DRG 871 ==
LOC: CSHERS 05:26 → SUATTDRO 05:26 → CSHTELE 09:12
PROVIDERS: ADMIT Internal Medicine; ATTEND Internal Medicine
PROC: 3E03329 Introduction of Other Anti-infective into Peripheral Vein, Percutaneous Approach (ICD-10-PCS; principal; 2023-06-19)
PROC: 4A033R1 Measurement of Arterial Saturation, Peripheral, Percutaneous Approach (ICD-10-PCS; 2023-06-19)
PROC: 5A09357 Assistance with Respiratory Ventilation, Less than 24 Consecutive Hours, Continuous Positive Airway Pressure (ICD-10-PCS; 2023-06-19)
DX: A41.9 Sepsis, unspecified organism (principal); J18.9 Pneumonia, unspecified organism; J96.01 Acute respiratory failure with hypoxia; E87.20 Acidosis, unspecified; R04.2 Hemoptysis; I48.91 Unspecified atrial fibrillation; R65.20 Severe sepsis without septic shock; E78.5 Hyperlipidemia, unspecified; N40.0 Benign prostatic hyperplasia without lower urinary tract symptoms; I25.10 Atherosclerotic heart disease of native coronary artery without angina pectoris; D64.9 Anemia, unspecified; I10 Essential (primary) hypertension; Z90.49 Acquired absence of other specified parts of digestive tract; Z98.890 Other specified postprocedural states; Z88.8 Allergy status to other drugs, medicaments and biological substances; Z88.0 Allergy status to penicillin; I25.2 Old myocardial infarction; Z79.82 Long term (current) use of aspirin; Z79.01 Long term (current) use of anticoagulants; Z79.899 Other long term (current) drug therapy; Z11.52 Encounter for screening for COVID-19
CPT/HCPCS: 36415; 36416; 36600; 71045; 71250; 80048; 80053; 80202; 81001; 82805; 83605; 83690; 83735; 84145; 84484; 85025; 85379; 85610; 85730; 86140; 86850; 86900; 86901; 87040; 87070; 87081; 87086; 87205; 87633; 87798; 93005; 94660; 94760; J2543; J3370; J3475; J3490; J7030

== ENCOUNTER 2024-04-13 04:17 | Inpatient (IN) | payer MEDICARE, OTHER ==
[2024-04-13 06:02] LABS: Influenza A by NAA Not Detected (NotDetected); Influenza B by NAA Not Detected (NotDetected); SARS-CoV-2 NAA Rapid Test Not Detected (NotDetected)
[2024-04-13 06:33] LABS: Bilirubin Neg (Negative); Blood, Urine Negative (Negative); Clarity Clear (Clear); Glucose, Urine (Dipstick) Normal (Negative); Ketone, Urine Negative (Negative); Leukocyte Negative (Negative); Nitrite Negative (Negative); Protein, Urine (Dipstick) 15 mg/dl (Neg-Trace); Specific Gravity, Urine 1.015 (1.005-1.030); Urobilinogen Normal mg/dL (Less than 2)
[2024-04-13 06:42] LABS: #Eosinphils 0.02 10x3/uL (0.0-0.5); #Monocytes 0.18 10x3/uL (0.0-1.1); #Neutrophils 2.73 10x3/uL (1.5-8.4); %Eosinophils 0.6 % (0.0-6.0); %Lymphocytes 10.7 % (18.0-47.0); %Monocytes 5.5 % (0.0-10.0); %Neutrophils 83.2 % (40.0-75.0); Hematocrit 30.4 % (38.8-50.0); Hemoglobin 9.8 g/dL (13.5-17.5); Mean Corpuscular HGB CONC 32.2 g/dL (32.0-36.0); Mean Corpuscular Hemoglobin 28.7 pg (27.0-33.0); Mean Corpuscular Volume 89.1 fL (81.2-95.1); Platelet Count 188 10x3/uL (150-450); RBC Distribution Width 14.6 % (11.5-14.5); Red Blood Cell (RBC) Count 3.41 10x6/uL (4.32-5.72); White Blood Cell (WBC) Count 3.3 10x3/uL (3.5-10.5)
[2024-04-13 06:45] LABS: Bacteria/HPF Rare-Few HPF (None Seen); CAUTI Indications for Culture Immunosuppressed; RBC/HPF 0-3 HPF (0-3); Squamous Epithelial 0-3 HPF (0-3); Transitional Epithelial 0-3 HPF (None Seen); WBC/HPF 0-3 HPF (0-3)
[2024-04-13 06:47] LABS: Urine Culture Reflex Yes Yes
[2024-04-13 06:50] LABS: D-Dimer Test 1.65 mcg/mL (0.19-0.50); INR-International Normal Ratio 1.1; PTT 28.8 sec (22.0-33.0); Prothrombin Time 12.2 sec (9.5-12.1)
[2024-04-13 07:00] LABS: ALT (SGPT) 10 U/L (8-55); AST (SGOT) 28 U/L (5-34); Albumin 3.2 g/dL (3.4-4.8); Alkaline Phosphatase 117 U/L (40-110); Anion Gap 18 mmol/L (10-20); BUN (Urea Nitrogen) 25 mg/dL (8.4-25.7); Bilirubin, Total 0.5 mg/dL (0.2-1.2); Calc. Creatinine Clearance 0 mL/min (70-130); Calcium 7.8 mg/dL (7.8-10.44); Carbon Dioxide 17 mmol/L (23-31); Chloride 105 mmol/L (98-107); Estimated GFR 51; Globulin 2.5 g/dL (2.4-3.5); Glucose 88 mg/dL (83-110); Potassium 3.7 mmol/L (3.5-5.1); Protein, Total 5.7 g/dL (5.8-8.1); Sodium 136 mmol/L (136-145)
[2024-04-13 07:01] LABS: Troponin I 0.016 ng/mL (< 0.028)
[2024-04-13] MEDS ORDERED: Cefepime 1 GM VIAL ONE (07:09)
[2024-04-13] MEDS ORDERED: Senokot S 8.6-50 MG TAB PO PRN (07:48)
[2024-04-13] MEDS ORDERED: Calcium Carbonate 500 MG ChewTAB PO PRN (07:48)
[2024-04-13] MEDS ORDERED: Ondansetron PF 4 MG/2 ML Vial IVP PRN (07:48)
[2024-04-13] MEDS ORDERED: Acetaminophen 325 MG TAB PO PRN (07:48)
[2024-04-13] MEDS ORDERED: Ipratropium/Albuterol 3 ML NEB NEB PRN (07:54)
[2024-04-13] MEDS ORDERED: Benzonatate 100 MG CAP PO PRN (07:54)
[2024-04-13] MEDS ORDERED: Albuterol 2.5 MG (3 mL) NEB NEB PRN (07:56)
[2024-04-13] MEDS ORDERED: Acetaminophen 500 MG TAB ONE (08:01)
[2024-04-13] MEDS ORDERED: Pregabalin 50 MG CAP PO SCH (09:00)
[2024-04-13] MEDS ORDERED: APALUTAMIDE 240 MG PO SCH (09:00)
[2024-04-13] MEDS ORDERED: Ondansetron PF 4 MG/2 ML Vial ONE (09:01)
[2024-04-13] MEDS ORDERED: Ketorolac Tromethamine 30 MG (1 mL) VIAL ONE (09:01)
[2024-04-13 09:52] LABS: Troponin I 0.022 ng/mL (< 0.028)
[2024-04-13] MEDS: Ketorolac Tromethamine 30 MG (1 mL) VIAL IVP SCH (11:23)
[2024-04-13] MEDS: VANCOMYCIN 2 GRAM/400 ML BAG 2 GM in Premix 1 BAG IVPB SCH (11:23)
[2024-04-13] MEDS ORDERED: NOREPINEPHRINE 8 MG/250 ML-D5W 250 ML ONE (12:36)
[2024-04-13] MEDS ORDERED: Sodium Chloride 0.9% 1,000 ML IV SCH (13:00)
[2024-04-13] MEDS ORDERED: Sodium Chloride 0.9% 500 ML IV SCH (13:00)
[2024-04-13 13:35] LABS: Troponin I 0.024 ng/mL (< 0.028)
[2024-04-13] MEDS: Apixaban 5 MG TAB PO SCH (14:04)
[2024-04-13] MEDS: Pantoprazole DR 40 MG TAB PO SCH (14:05)
[2024-04-13] MEDS: Dronedarone HCl 400 MG TAB PO SCH (14:05)
[2024-04-13] MEDS: Aspirin 81 mg Enteric Coated Tablet PO SCH (14:05)
[2024-04-13 14:23] LABS: #Basophils 0.01 10x3/uL (0.0-0.2); #Eosinphils 0.02 10x3/uL (0.0-0.5); #Monocytes 0.67 10x3/uL (0.0-1.1); #Neutrophils 4.74 10x3/uL (1.5-8.4); %Basophils 0.2 % (0.0-2.0); %Eosinophils 0.3 % (0.0-6.0); %Lymphocytes 11.7 % (18.0-47.0); %Monocytes 10.8 % (0.0-10.0); %Neutrophils 76.7 % (40.0-75.0); Hematocrit 30.4 % (38.8-50.0); Hemoglobin 9.8 g/dL (13.5-17.5); Mean Corpuscular HGB CONC 32.2 g/dL (32.0-36.0); Mean Corpuscular Hemoglobin 28.8 pg (27.0-33.0); Mean Corpuscular Volume 89.4 fL (81.2-95.1); Mean Platelet Volume 9.1 fL (7.4-10.4); Platelet Count 187 10x3/uL (150-450); RBC Distribution Width 14.8 % (11.5-14.5); White Blood Cell (WBC) Count 6.2 10x3/uL (3.5-10.5)
[2024-04-13 14:27] LABS: Actual Bicarbonate (HCO3a) 21.8 mEq/L (22-28); Analyzer IN Cardio CS ER; Base Excess (BEa) -2.7 mEq/L (-2.0 to +3.0); CO2 Tension 36.6 mmHg (35.0-45.0); Calcium, Ionized (arterial) 1.02 mmol/L (1.12-1.30); Carboxyhemoglobin (COHb) 0.3 gm% (0.0-3.0); Hematocrit-ABG 31 % (42.0-52.0); Hemoglobin (Hb) 10.4 g/dL (14.0-18.0); O2 Tension (PaO2), arterial 63.6 mmHg (> 60.0); Potassium - ABG Lab 3.83 mmol/L (3.70-5.30); Puncture Site Right Radial artery; pH, Arterial 7.393 (7.35-7.45)
[2024-04-13] MEDS: Albumin 25% 25 GM (100 mL) BOT IVPB SCH (14:33)
[2024-04-13 14:39] LABS: Anion Gap 12 mmol/L (10-20); BUN (Urea Nitrogen) 27 mg/dL (8.4-25.7); Calc. Creatinine Clearance 0 mL/min (70-130); Calcium 7.5 mg/dL (7.8-10.44); Carbon Dioxide 21 mmol/L (23-31); Chloride 106 mmol/L (98-107); Estimated GFR 49; Glucose 105 mg/dL (83-110); Magnesium 1.8 mg/dL (1.6-2.6); Phosphorus 3.8 mg/dL (2.3-4.7); Potassium 4.1 mmol/L (3.5-5.1); Sodium 135 mmol/L (136-145)
[2024-04-13] MEDS ORDERED: Iopamidol 370 76% 100 ML VIAL ONE (15:03)
[2024-04-13] MEDS ORDERED: Simvastatin 10 MG TAB PO SCH (17:00)
[2024-04-13] MEDS ORDERED: Dronedarone HCl 400 MG TAB PO SCH (17:00)
[2024-04-13] MEDS ORDERED: Albumin 25% 25 GM (100 mL) BOT IVPB SCH (20:00)
[2024-04-13] MEDS ORDERED: Cefepime 1 GM in Sodium Chloride 0.9% 100 ML IVPB SCH (21:00)
== END 2024-04-13 15:18 | disposition home or self-care (01) | DRG 871 ==
LOC: SUATTDRO 04:17 → CSHERS 04:17 → CSHERHOLD 07:49
PROVIDERS: ADMIT Internal Medicine; ATTEND Internal Medicine
PROC: 4A033R1 Measurement of Arterial Saturation, Peripheral, Percutaneous Approach (ICD-10-PCS; principal; 2024-04-13)
DX: A41.9 Sepsis, unspecified organism (principal); G93.41 Metabolic encephalopathy; J18.9 Pneumonia, unspecified organism; N17.9 Acute kidney failure, unspecified; Z66 Do not resuscitate; I48.0 Paroxysmal atrial fibrillation; E78.5 Hyperlipidemia, unspecified; I12.9 Hypertensive chronic kidney disease with stage 1 through stage 4 chronic kidney disease, or unspecified chronic kidney disease; N18.9 Chronic kidney disease, unspecified; Z79.899 Other long term (current) drug therapy; Z79.01 Long term (current) use of anticoagulants; Z88.8 Allergy status to other drugs, medicaments and biological substances; Z88.0 Allergy status to penicillin; Z88.2 Allergy status to sulfonamides; Z79.82 Long term (current) use of aspirin; Z90.49 Acquired absence of other specified parts of digestive tract; Z85.828 Personal history of other malignant neoplasm of skin; Z87.891 Personal history of nicotine dependence; Z85.46 Personal history of malignant neoplasm of prostate; Z88.1 Allergy status to other antibiotic agents
CPT/HCPCS: 36415; 36600; 70450; 71045; 71275; 80053; 81001; 82533; 82805; 83605; 83735; 83880; 84100; 84145; 84484; 85025; 85379; 85610; 85730; 87040; 87086; 93005; 96374; 96375; J0692; J1885; J2405; J3370; P9047; Q9967